=== PATIENT | male | born 1970 | race Two or more races ===

== ENCOUNTER → 2018-11-16 16:18 | Outpatient (CLI) | payer OTHER | END | disposition home or self-care (01) | LOC: LAB 16:18 | DX: J45.998 Other asthma (principal); J01.80 Other acute sinusitis ==

== ENCOUNTER 2019-03-31 15:32 | Outpatient (CLI) | payer OTHER | END 2019-03-31 15:45 | disposition home or self-care (01) | LOC: LAB 15:32 | DX: E03.8 Other specified hypothyroidism (principal); E11.65 Type 2 diabetes mellitus with hyperglycemia; N39.0 Urinary tract infection, site not specified; N40.1 Benign prostatic hyperplasia with lower urinary tract symptoms; E78.2 Mixed hyperlipidemia ==

== ENCOUNTER 2019-04-27 13:07 | Outpatient (CLI) | payer OTHER ==
[~2019-04-27] VITALS: Ht 172.7 cm; Wt 93.0 kg
== END 2019-04-27 14:59 | disposition home or self-care (01) ==
LOC: OFIC 805 13:07
DX: H90.3 Sensorineural hearing loss, bilateral (principal); R09.81 Nasal congestion; J34.2 Deviated nasal septum; H61.23 Impacted cerumen, bilateral; R42 Dizziness and giddiness

== ENCOUNTER 2019-05-18 09:23 | Outpatient (CLI) | payer OTHER | END 2019-05-18 14:30 | disposition home or self-care (01) | LOC: OFIC 805 09:23 | DX: H91.8X3 Other specified hearing loss, bilateral (principal); J34.2 Deviated nasal septum; R42 Dizziness and giddiness ==

== ENCOUNTER 2019-07-05 13:06 | Outpatient (CLI) | payer OTHER | END 2019-07-05 15:00 | disposition home or self-care (01) | LOC: LAB 13:06 | DX: R42 Dizziness and giddiness (principal) ==

== ENCOUNTER → 2019-07-05 | Outpatient (CLI) | payer OTHER ==
[~2019-07-05] MED LIST: CYCLOBENZAPRINE5 MG PO
== END | disposition home or self-care (01) ==
LOC: OFIC 805 08:01
DX: J34.2 Deviated nasal septum (principal); R09.81 Nasal congestion; R42 Dizziness and giddiness; H91.8X3 Other specified hearing loss, bilateral

== ENCOUNTER 2019-07-07 10:25 | Outpatient (CLI) | payer OTHER | END 2019-07-07 10:42 | disposition home or self-care (01) | LOC: MRI 10:25 | DX: R42 Dizziness and giddiness (principal) | CPT/HCPCS: 70552 ==

== ENCOUNTER 2019-07-13 12:55 | Outpatient (CLI) | payer OTHER | END 2019-07-13 15:05 | disposition home or self-care (01) | LOC: OFIC 805 12:55 | PROVIDERS: ATTEND Otolaryngology | DX: R09.81 Nasal congestion (principal); H91.8X3 Other specified hearing loss, bilateral; R42 Dizziness and giddiness; J34.2 Deviated nasal septum ==

== ENCOUNTER → 2019-07-14 | Outpatient (CLI) | payer OTHER | END | disposition home or self-care (01) | LOC: TOM 10:15 | DX: H70.892 Other mastoiditis and related conditions, left ear (principal); H65.492 Other chronic nonsuppurative otitis media, left ear ==

== ENCOUNTER 2019-08-03 08:58 | Outpatient (CLI) | payer OTHER | END 2019-08-03 17:55 | disposition home or self-care (01) | LOC: OFIC 805 08:58 | PROVIDERS: ATTEND Otolaryngology | DX: R09.81 Nasal congestion (principal); J34.2 Deviated nasal septum; R42 Dizziness and giddiness; H61.23 Impacted cerumen, bilateral; H90.3 Sensorineural hearing loss, bilateral ==

== ENCOUNTER 2019-09-30 14:25 | Outpatient (CLI) | payer OTHER | END 2019-09-30 18:58 | disposition home or self-care (01) | LOC: OFIC 805 14:25 | PROVIDERS: ATTEND Otolaryngology | DX: R42 Dizziness and giddiness (principal); R09.81 Nasal congestion; J34.2 Deviated nasal septum ==